=== PATIENT | male | born 1995 | race Caucasian/White ===

== ENCOUNTER 2021-02-24 21:32 | Emergency (ER) | payer SELFPAY ==
[~2021-02-24] VITALS: Ht 170.2 cm; Wt 68.0 kg
[2021-02-25 00:51] VITALS: BP 142/66
== END 2021-02-25 02:35 | disposition home or self-care (01) ==
LOC: EDBD 21:32 → ER 21:32
DX: S13.9XXA Sprain of joints and ligaments of unspecified parts of neck, initial encounter (principal); S33.5XXA Sprain of ligaments of lumbar spine, initial encounter; V43.52XA Car driver injured in collision with other type car in traffic accident, initial encounter; Y93.89 Activity, other specified; Y92.410 Unspecified street and highway as the place of occurrence of the external cause; Y99.8 Other external cause status
CPT/HCPCS: 72070; 72125